=== PATIENT | female | born 1960 | race Caucasian/White ===

== ENCOUNTER → 2016-04-14 | Outpatient (CLI) | payer OTHER ==
[~2016-04-14] MED LIST: ACET325 PO; ACET325T PO; IBUP800T23 PO; MULT-65 PO; MULTTAB67 PO
[2016-04-14 10:37] LABS: AUTOMATED NEUTROPHIL # 2.1 TH/MM3 (1.8-7.7); BASOPHIL # 0.1 TH/MM3 (0-0.2); BASOPHIL % 1.5 % (0.0-2.0); EOSINOPHIL # 0.1 TH/MM3 (0-0.4); EOSINOPHIL % 2.5 % (0.0-4.0); HEMATOCRIT 41.9 % (35.0-46.0); HEMO FLAGS DIFF FINAL; LYMPH % 40.5 % (9.0-44.0); LYMPHOCYTE # 1.9 TH/MM3 (1.0-4.8); MEAN CELL VOLUME 87.2 FL (80.0-100.0); MEAN CORPUSCULAR HGB CONC 33.2 % (32.0-36.0); MONO % 9.5 % (0.0-8.0); PLATELET COUNT 283 TH/MM3 (150-450); RED CELL DISTRIBUTION WIDTH 14.4 % (11.6-17.2); WHITE BLOOD COUNT 4.6 TH/MM3 (4.0-11.0)
[2016-04-14 11:08] LABS: ALKALINE PHOSPHATASE 89 U/L (45-117); ALT (GPT) 25 U/L (10-53); ANION GAP 8 MEQ/L (5-15); AST (GOT) 17 U/L (15-37); BLOOD UREA NITROGEN 15 MG/DL (7-18); CHLORIDE 108 MEQ/L (98-107); GLOMERULAR FILTRATION RATE 79 ML/MIN (>89); GLUCOSE,FASTING 81 MG/DL (74-99); HDL CHOLESTEROL 95.9 MG/DL (40.0-60.0); LDL CHOLESTEROL 112 MG/DL (0-99); POTASSIUM 3.6 MEQ/L (3.5-5.1); SODIUM (NA) 143 MEQ/L (136-145); TOTAL BILIRUBIN ADULT 1.5 MG/DL (0.2-1.0)
== END ==
LOC: CLAB 10:14
PROVIDERS: ATTEND Family Medicine
DX: E78.5 Hyperlipidemia, unspecified (principal); Z85.038 Personal history of other malignant neoplasm of large intestine
CPT/HCPCS: 36415; 80053; 80061; 84443; 85025

== ENCOUNTER → 2016-04-29 | Outpatient (CLI) | payer OTHER ==
[~2016-04-29] MED LIST changes: -ACET325 PO; -MULT-65 PO
== END ==
LOC: CLAB 11:53
PROVIDERS: ATTEND Family Medicine
DX: R94.6 Abnormal results of thyroid function studies (principal)
CPT/HCPCS: 36415; 84443

== ENCOUNTER → 2016-07-06 | Outpatient (CLI) | payer OTHER | LOC: CLAB 10:02 | PROVIDERS: ATTEND Family Medicine | DX: E07.9 Disorder of thyroid, unspecified (principal) | CPT/HCPCS: 36415; 84443 ==

== ENCOUNTER → 2016-07-08 | Outpatient (CLI) | payer OTHER | LOC: CLAB 15:53 | PROVIDERS: ATTEND Family Medicine | DX: E07.9 Disorder of thyroid, unspecified (principal); R53.83 Other fatigue | CPT/HCPCS: 36415; 82533; 84443; 86038 ==

== ENCOUNTER → 2017-01-05 | Day surgery (SDC) | payer OTHER ==
[~2017-01-05] MED LIST changes: -ACET325T PO; +LACTATED RINGER'S 1000 ML INJ 1,000 ML ONE; +MAPA325T PO; +PROPOFOL 200 MG/20 ML AMP IV ONE
--- NOTE | 2017-01-05 17:01 | GIPROC ---
[facility] [address] [facility] [place], [address] COLONOSCOPY PROCEDURE REPORT EXAM DATE: 01/05/2017 PATIENT NAME: Viviana Cotton MR #: [id number] BIRTHDATE: 1960 ENDOSCOPIST: Alissa Banks MD ORDER #: [id number] ALUMINUM MOLDING MACHINE OPERATOR: Usha Velazquez STATUS: outpatient INDICATIONS: The patient is a 56 yr old female here for a colonoscopy due to history of cancerous polyp, strong family of colon cancer PROCEDURE PERFORMED: Colonoscopy, screening MEDICATIONS: None and Per Anesthesia. PREP QUALITY: good PREP TYPE:Other: ESTIMATED BLOOD LOSS: None CONSENT: The patient understands the risks and benefits of the procedure and understands that these risks include, but are not limited to: sedation, allergic reaction, infection, perforation and/or bleeding. Alternative means of evaluation and treatment include, among others: physical exam, x-rays, and/or surgical intervention. The patient elects to proceed with this endoscopic procedure. medical equipment was checked for proper function. Hand hygiene and appropriate measures for infection prevention was taken. After the risks, benefits and alternatives of the procedure were thoroughly explained, Informed consent was verified, confirmed and timeout was successfully executed by the treatment team. A digital exam revealed hemorrhoids The [id number] ([id number]) endoscope was introduced through the anus and advanced to the cecum, which was identified by both the appendix and ileocecal valve. The instrument was then slowly withdrawn as the colon was fully examined. COLON FINDINGS: Tattoo sigmoid colon internal hemorrhoids few small diverticulae in sigmoid. Retroflexed views revealed internal hemorrhoids and Retroflexed views revealed small internal hemorrhoids The scope was then completely withdrawn from the patient and the procedure terminated. PROCEDURE WITHDRAWAL TIME:6minutes ADVERSE EVENTS: There were no complications. IMPRESSIONS: 1. Tattoo sigmoid colon internal hemorrhoids few small diverticulae in sigmoid 2. Retroflexed views revealed internal hemorrhoids 3. Retroflexed views revealed small internal hemorrhoids 4. Revealed hemorrhoids RECOMMENDATIONS: 1. Benefiber 2 tsp daily 2. Probiotics from any [facility] or health food store 3. Genetic consult if interested RECALL: Return 2 years Colonoscopy Alissa Banks MD eSigned: Alissa Banks MD 01/05/2017 5:01 PM cc: Reyna Conte [facility] G[facility]ia and Tasha Kitchen M.D.
== END | disposition home or self-care (01) ==
LOC: ESDC 13:00
PROVIDERS: ATTEND Internal Medicine Gastroenterology
DX: Z12.11 Encounter for screening for malignant neoplasm of colon (principal); Z86.010 Personal history of colon polyps; Z80.0 Family history of malignant neoplasm of digestive organs; K64.8 Other hemorrhoids; K57.90 Diverticulosis of intestine, part unspecified, without perforation or abscess without bleeding
CPT/HCPCS: 00810; 45378; J7120

== ENCOUNTER 2017-04-14 16:23 | Emergency (ER) | payer SELFPAY ==
[~2017-04-14] VITALS: Ht 157.5 cm; Wt 59.0 kg
[~2017-04-14 16:23] MED LIST changes: +IBUP1TAB7 PO; -IBUP800T23 PO; -LACTATED RINGER'S 1000 ML INJ 1,000 ML ONE; -PROPOFOL 200 MG/20 ML AMP IV ONE
[2017-04-14 16:32] VITALS: BP 157/69; PULSE 79; RESP 16; TEMP 97.6; O2SAT 98
[2017-04-14] MEDS ORDERED: KETOROLAC TROMETHAMINE 60 MG/2 ML (IM) VIAL IM ONE (17:00)
--- NOTE | 2017-04-14 17:06 | PD ---
HPI Chief Complaint: Fall Time Seen by Provider: 16:49 Travel History International Travel<30 days: No Contact w/Intl Traveler<30days: No Traveled to known affect area: No History of Present Illness HPI 56-year-old female with PMH of bulging lumbar disc presents to the ED for evaluation of low back pain, right hip pain, tingling down the right leg. Pain is rated 8/10, described as shooting. Exacerbated by range of motion and ambulation. Onset approximately 2 PM after the patient tripped while walking into the convenience store with her sister. She states that she fell forward and thinks that she landed on her knees but she is unsure. She has been ambulatory since the accident. She denies hitting her head, loss of consciousness, numbness, tingling, weakness, limitations to range of motion of the upper extremities. She denies limitations to range of motion in the lower extremities. She took 400 mg of ibuprofen at 2 PM with no improvement of symptoms. PFSH Past Medical History Cancer: Yes (ca polyp ) Cardiovascular Problems: No Diabetes: No Diminished Hearing: No Endocrine: No Gastrointestinal Disorders: Yes (polyp removed, bloating ) Genitourinary: No Hepatitis: No Hiatal Hernia: No Immune Disorder: No Musculoskeletal: Yes (2 HERNIATED DISCS IN LOWER BACK AND UPPER BACK) Neurologic: No Psychiatric: No Reproductive: Yes (ovarian pain) Respiratory: No Immunizations Current: Yes Thyroid Disease: No Influenza Vaccination: No Menopausal: Yes Dilation and Curettage (D&C): Yes Past Surgical History AICD: No Gynecologic Surgery: Yes (D+C) Joint Replacement: No Pacemaker: No Tonsillectomy: Yes Other Surgery: Yes Social History Alcohol Use: Yes (RARE) Tobacco Use: No Substance Use: No Allergies-Medications (Allergen,Severity, Reaction): Coded Allergies: No Known Allergies (Unverified , 11/18/16) Reported Meds & Prescriptions Reported Meds & Active Scripts Active Prednisone 20 Mg Tab 40 Mg PO DAILY Take 40 mg (2 tablets) daily for 5 days Flexeril (Cyclobenzaprine HCl) 10 Mg Tab 10 Mg PO TID Reported Ibuprofen 800 Mg Tab 800 Mg PO TID Review of Systems Except as stated in HPI: all other systems reviewed are Neg Physical Exam Narrative GENERAL: Well-nourished, well-developed white female in no acute distress. SKIN: Focused skin assessment warm/dry. HEAD: Normocephalic. Atraumatic. EYES: No scleral icterus. No injection or drainage. NECK: Supple, trachea midline. No JVD or lymphadenopathy. CARDIOVASCULAR: Regular rate and rhythm without murmurs, gallops, or rubs. RESPIRATORY: Breath sounds clear and equal bilaterally. No accessory muscle use. GASTROINTESTINAL: Abdomen soft, non-tender, nondistended. MUSCULOSKELETAL: No cyanosis, or edema. Positive tenderness to palpation of the anterior lateral right hip. No shortening or rotation noted. 5/5 strength of dorsiflexion, plantar flexion, knee and hip flexion bilaterally. No pain elicited with internal and external rotation. BACK: No obvious deformity. No CVA tenderness. Positive midline tenderness to palpation of the lumbar area. Positive tenderness to palpation over the sciatic notch in the right buttock. Positive straight leg raise on the right. Data Data Last Documented VS Vital Signs Date Time Temp Pulse Resp B/P (MAP) Pulse Ox O2 Delivery O2 Flow Rate FiO2 04/14/17 16:32 97.6 79 16 157/69 (98) 98 Orders Orders Hip, Uni(Ap&Lat) Wo Ap Pelvis (04/14/17 17:00) Ct Lumb Spine W/O Contrast (04/14/17 17:00) Ketorolac Inj (Toradol Inj) (04/14/17 17:00) Ed Discharge Order (04/14/17 18:04) [facility] Medical Decision Making Medical Screen Exam Complete: Yes Emergency Medical Condition: Yes Differential Diagnosis Musculoskeletal pain versus acute on chronic back pain versus sciatica versus radiculopathy versus other Narrative Course 56-year-old female with PMH of bulging lumbar disc presents to the ED for evaluation of low back pain, right hip pain, tingling down the right leg. Onset approximately 2 PM after the patient tripped while walking into the convenience store with her sister. She states that she fell forward and thinks that she landed on her knees but she is unsure. She has been ambulatory since the accident. She denies hitting her head, loss of consciousness, numbness, tingling, weakness, limitations to ROM of the upper extremities, limitations to ROM in the lower extremities. Vitals reviewed. Physical exam reveals midline tenderness to palpation in the lumbar spine, right sciatic notch, right anterior lateral hip. Leg raise positive on the right. Physical exam otherwise unremarkable. Patient was administered IM Toradol. X-ray of the right hip unremarkable. CT of the lumbar spine reveals intravertebral disc bulge between L4-L5 and L5-S1. Test results of workup with the patient. She is prescribed a short course of steroids and muscle relaxants. She is instructed to return to normal, gentle activity as tolerated. She is provided a copy of her CT and instructed to follow-up with the neurologist. The on-call neurologist's information was provided. We discussed reasons to return to the ED. She indicated understanding of instructions and is agreeable to the care plan. The patient is stable and discharged home. Diagnosis Primary Impression: Fall from standing Qualified Codes: W19.XXXA - Unspecified fall, initial encounter Additional Impressions: Bulging of intervertebral disc between L4 and L5 Herniation of intervertebral disc between L5 and S1 Musculoskeletal pain Sciatica Qualified Codes: M54.31 - Sciatica, right side Referrals: Sara Becker MD Patient Instructions: General Instructions, Lumbar Disc Herniation (ED), Musculoskeletal Pain (ED), Sciatica (ED) Additional Instructions: Rest, hydrate. Return to normal, gentle activities as tolerated. A mixture of rest and activity is best for back pain. Take steroids and muscle relaxants as prescribed. Begin steroids tomorrow. Do not drive while taking muscle relaxants as they may cause drowsiness. Follow-up with the neurologist as discussed. Return to the ED for any urgent or emergent medical condition. Med/Other Pt SpecificInfo: Prescription(s) given Scripts Prednisone (Prednisone) 20 Mg Tab 40 MG PO DAILY, #10 TAB 0 Refills Take 40 mg (2 tablets) daily for 5 days Prov: Olvin Jules MD 04/14/17 Cyclobenzaprine (Flexeril) 10 Mg Tab 10 MG PO TID for Muscle Spasm, #15 TAB 0 Refills Prov: Olvin Jules MD 04/14/17 Disposition: 01 DISCHARGE HOME Condition: Stable Suzie Grubbs Apr 14, 2017 17:06
--- NOTE | 2017-04-14 17:35 | RADRPT ---
EXAM DATE/TIME: 04/14/2017 17:18 [facility] COMPARISON: No previous studies available for comparison. INDICATIONS : Fall this afternoon. MEDICAL HISTORY : None. SURGICAL HISTORY : None. ENCOUNTER: Initial ACUITY: 1 day PAIN SCORE: 8/10 LOCATION: Right Hip FINDINGS: A two view examination of the right hip was performed. The primary and secondary trabecular pattern of the femoral neck is intact. The hip joint is of normal width without significant sclerosis or bon y hypertrophy. The acetabulum is grossly intact. CONCLUSION: 1. Negative examination of the hip. Andrea Kiser MD on April 14, 2017 at 17:32 Board Certified Radiologist. This report was verified electronically.
--- NOTE | 2017-04-14 17:42 | RADRPT ---
EXAM DATE/TIME: 04/14/2017 17:13 [facility] COMPARISON: No previous studies available for comparison. INDICATIONS : Trauma. Trip and fall. Low back pain with radiculopathy down right leg. RADIATION DOSE: 18.66 CTDIvol (mGy) MEDICAL HISTORY : None SURGICAL HISTORY : Hysterectomy. ENCOUNTER: Initial ACUITY: 1 day PAIN SCALE: 7/10 LOCATION: Right lumbar spine TECHNIQUE: Volumetric scanning of the lumbar spine was performed. Multiplanar reconstructions in the sagittal, coronal and oblique axial planes were performed. Using automated exposure control and adjustment of the mA and/or kV according to patient size, radiation dose was kept as low as reasonably achievable t o obtain optimal diagnostic quality images. DICOM format image data is available electronically for review and comparison. FINDINGS: No significant compression deformities, spondylolisis, or spondylolesthesis is seen. T12-L1: There is no evidence for any significant compromise to the thecal sac, or the exiting nerve roots. N o appreciable thecal sac stenosis is seen. The neural foramina and lateral recess appear patent bila terally. L1-L2: There is no evidence for any significant compromise to the thecal sac, or the exiting nerve roots. N o appreciable thecal sac stenosis is seen. The neural foramina and lateral recess appear patent bila terally. L2-L3: There is no evidence for any significant compromise to the thecal sac, or the exiting nerve roots. N o appreciable thecal sac stenosis is seen. The neural foramina and lateral recess appear patent bila terally. L3-L4: Slight bulging disc is present with minimal extension into bilateral neural foramina. No significant compromise to the thecal sac or the exiting nerve roots are seen. L4-L5: There is moderate neural foramina compromise on the left due to asymmetrical bulging disc and hypertr ophic changes. Slight bulging disc and hypertrophic changes are seen with indentation on the thecal s ac and no significant compromise to the thecal sac. L5-S1: Moderate degenarative changes are seen within the disc space and facets. There is slight neural krista tori compromise on the right due to asymmetrical bulging disc and hypertrophic changes. Slight bulging disc and hypertrophic changes are seen with indentation on the thecal sac and no significant comprom ise to the thecal sac. CONCLUSION: Neural foramina compromise left L4-5, right L5-S1. Betzy Ramirez MD on April 14, 2017 at 17:34 Board Certified Radiologist. This report was verified electronically.
[2017-04-14] MEDS ORDERED: CYCL10TA PO (18:03)
[2017-04-14] MEDS ORDERED: PRED20 PO (18:03)
== END 2017-04-14 18:19 | disposition home or self-care (01) ==
LOC: PHEFT 16:23
DX: M51.27 Other intervertebral disc displacement, lumbosacral region (principal); M54.31 Sciatica, right side; Z79.899 Other long term (current) drug therapy
CPT/HCPCS: 72131; 73502; 96372; 99285; J1885

== ENCOUNTER 2017-04-17 11:19 | Emergency (ER) | payer SELFPAY ==
[~2017-04-17] VITALS: Ht 157.5 cm; Wt 58.5 kg
[~2017-04-17 11:19] MED LIST changes: +CYCL10TA PO; +PRED20 PO
[2017-04-17 11:39] VITALS: BP 142/73; PULSE 84; RESP 15; TEMP 98.7; O2SAT 98
--- NOTE | 2017-04-17 12:31 | PD ---
HPI Chief Complaint: Back/ Neck Pain or Injury Time Seen by Provider: 12:21 Travel History International Travel<30 days: No Contact w/Intl Traveler<30days: No Traveled to known affect area: No History of Present Illness HPI 56-year-old female here with neck pain radiates down to the right arm 3 days. She had a mechanical trip and fall on 04/14/17. She reports that she tripped over uneven dorian falling into a doorjamb bracing herself with her arms which caused her neck to whiplash. She was evaluated in the ER and had a negative CT of the lumbar spine. She was diagnosed with sciatica. She reports she had continued pain in the neck and right upper extremity since the injury. She denies paresthesia or weakness of the extremities. Symptom severity is moderate. Aggravated by movement of the right upper extremity and neck. Slightly relieved with rest. PFSH Past Medical History Cancer: Yes (ca polyp ) Cardiovascular Problems: No Diabetes: No Diminished Hearing: No Endocrine: No Gastrointestinal Disorders: Yes (polyp removed, bloating ) Genitourinary: No Hepatitis: No Hiatal Hernia: No Immune Disorder: No Musculoskeletal: Yes (2 HERNIATED DISCS IN LOWER BACK AND UPPER BACK) Neurologic: No Psychiatric: No Reproductive: Yes (ovarian pain) Respiratory: No Immunizations Current: Yes Thyroid Disease: No Tetanus Vaccination: < 5 Years Influenza Vaccination: No Menopausal: Yes Dilation and Curettage (D&C): Yes Past Surgical History AICD: No Gynecologic Surgery: Yes (D+C) Joint Replacement: No Pacemaker: No Tonsillectomy: Yes Other Surgery: Yes Social History Alcohol Use: Yes (RARE) Tobacco Use: No Substance Use: No Allergies-Medications (Allergen,Severity, Reaction): Coded Allergies: No Known Allergies (Unverified Adverse Reaction, Unknown, 04/17/17) Reported Meds & Prescriptions Reported Meds & Active Scripts Active Prednisone 20 Mg Tab 40 Mg PO DAILY Take 40 mg (2 tablets) daily for 5 days Flexeril (Cyclobenzaprine HCl) 10 Mg Tab 10 Mg PO TID Reported Ibuprofen 800 Mg Tab 800 Mg PO TID Review of Systems Except as stated in HPI: all other systems reviewed are Neg General / Constitutional: No: Fever Eyes: No: Visual changes HENT: No: Headaches Cardiovascular: No: Chest Pain or Discomfort Respiratory: No: Shortness of Breath Gastrointestinal: No: Abdominal Pain Genitourinary: No: Dysuria Physical Exam Narrative GENERAL: Alert female. Well-appearing. SKIN: Warm and dry. HEAD: Normocephalic. Atraumatic EYES: No scleral icterus. No injection or drainage. NECK: Supple, trachea midline. No JVD or lymphadenopathy. Tenderness across the cervical spine and right trapezius muscles. able to move and head from left to right and chin to chest. CARDIOVASCULAR: Regular rate and rhythm without murmurs, gallops, or rubs. RESPIRATORY: Breath sounds equal bilaterally. No accessory muscle use. GASTROINTESTINAL: Abdomen soft, non-tender, nondistended. MUSCULOSKELETAL: No cyanosis, or edema. Normal strength and sensation in extremities. BACK: Nontender without obvious deformity. No CVA tenderness. NEUROLOGICAL: Awake and alert. Motor and sensory grossly within normal limits. Five out of 5 muscle strength in all muscle groups. Normal speech. Equal hand grasp Data Data Last Documented VS Vital Signs Date Time Temp Pulse Resp B/P (MAP) Pulse Ox O2 Delivery O2 Flow Rate FiO2 04/17/17 11:39 98.7 84 15 142/73 (96) [address] Cerv Spine W/O Contrast (04/17/17 ) [facility] Medical Decision Making Medical Screen Exam Complete: Yes Emergency Medical Condition: Yes Differential Diagnosis Cervical strain, cervical fracture, cervical radiculopathy Narrative Course 56-year-old female here with right-sided neck pain that radiates into the arm. The pain is reproducible. She has a normal neurologic exam. CT cervical spine: Negative for fracture Diagnosis Primary Impression: Cervical strain Qualified Codes: S16.1XXA - Strain of muscle, fascia and tendon at neck level , initial encounter Referrals: Primary Care Physician Additional Instructions: Avoid heavy lifting or strenuous activity. [id number] Tylenol or ibuprofen as needed for pain. Disposition: 01 DISCHARGE HOME Condition: Stable GarykennethKalina GONCALVES Apr 17, 2017 12:31
--- NOTE | 2017-04-17 14:44 | RADRPT ---
EXAM DATE/TIME: 04/17/2017 13:46 [facility] COMPARISON: No previous studies available for comparison. INDICATIONS : Fell a few days ago with continued neck pain and right upper extremity tingling. RADIATION DOSE: 23.53 CTDIvol (mGy) ; Patient motion MEDICAL HISTORY : None SURGICAL HISTORY : Tonsillectomy. Hysterectomy. ENCOUNTER: Initial ACUITY: 3 days PAIN SCALE: 5/10 LOCATION: Right neck posterior TECHNIQUE: Volumetric scanning of the cervical spine was performed. Multiplanar reconstructions in the sagittal, coronal and oblique axial planes were performed. Using automated exposure control and adjustment o f the mA and/or kV according to patient size, radiation dose was kept as low as reasonably achievable to obtain optimal diagnostic quality images. DICOM format image data is available electronically f or review and comparison. FINDINGS: CT of the cervical spine was performed in sagittal and axial planes. There is straightening of the no rmal cervical lordosis which may be secondary positioning or spasm. No focal areas of marrow replacem ent are identified. The craniocervical junction appears normal. Axial images were performed from C2-C 3 through C7-T1. C2-C3: No significant abnormalities identified. C3-C4: No significant abnormalities identified. C4-C5: No significant abnormalities identified. C5-C6: No significant abnormalities identified. C6-C7: No significant abnormalities identified. C7-T1: No significant abnormalities identified. CONCLUSION: 1. There is no evidence of acute fracture. Andrea Kiser MD on April 17, 2017 at 14:40 Board Certified Radiologist. This report was verified electronically.
== END 2017-04-17 15:21 | disposition home or self-care (01) ==
LOC: PHEFT 11:19
DX: S16.1XXA Strain of muscle, fascia and tendon at neck level, initial encounter (principal); W01.198A Fall on same level from slipping, tripping and stumbling with subsequent striking against other object, initial encounter
CPT/HCPCS: 72125; 99284